=== PATIENT | male | born 1980 | race Two or more races ===

== ENCOUNTER 2018-08-30 16:03 | Emergency (ER) | payer OTHER ==
[~2018-08-30] VITALS: Ht 165.1 cm; Wt 97.5 kg
[2018-08-30 16:13] VITALS: BP 141/80
== END 2018-08-30 18:14 | disposition home or self-care (01) ==
LOC: ER 16:06
DX: H10.32 Unspecified acute conjunctivitis, left eye (principal)

== ENCOUNTER 2018-11-13 20:12 | Emergency (ER) | payer MEDICAID, OTHER ==
[~2018-11-13] VITALS: Ht 165.1 cm; Wt 102.1 kg
[2018-11-13] MEDS ORDERED: BACLOFEN 10 MG TAB PO ONE (22:45)
[2018-11-13] MEDS ORDERED: HYDROcodone-ACET 10/325MG TAB PO ONE (22:45)
[2018-11-13 22:47] VITALS: BP 133/92
== END 2018-11-13 22:44 | disposition home or self-care (01) ==
LOC: ER 20:17
DX: M54.5 Low back pain (principal); M62.838 Other muscle spasm; V43.52XA Car driver injured in collision with other type car in traffic accident, initial encounter; Y93.89 Activity, other specified; Y92.488 Other paved roadways as the place of occurrence of the external cause; Y99.8 Other external cause status
CPT/HCPCS: 72100